=== PATIENT | male | born 2005 | race Caucasian/White ===

== ENCOUNTER 2025-05-03 09:41 | Outpatient (RCR) | payer MEDICAID, SELFPAY ==
--- NOTE | 2025-05-03 | XR_ITS ---
Examination: ALVARADO, hepatobiliary radioisotope scan Gallbladder ejection fraction study. Date and time of exam: May 03, 2025 1048 hours INDICATION: Sharp upper abdominal pain with nausea vomiting and diarrhea beginning 3 years ago Technique: 5.9 mCi of 99M Hepatolite administered. Serial imaging then obtained from immediate through 60 minutes. 2.5 mcg selective catheter Kinevac administered for gallbladder ejection fraction study. Findings: Radioisotope activity within the liver is reasonably homogenous. Gallbladder, common bile duct small bowel activity noted Impression: Gallbladder activity, abnormal gallbladder ejection fraction 25%, normal greater than 35%
== END 2025-05-08 23:59 | disposition home or self-care (01) ==
LOC: SNUC 09:41
PROVIDERS: PCP Nurse Practitioner Family; Referring Provider Nurse Practitioner Family; Visit Provider Nurse Practitioner Family
DX: R93.2 Abnormal findings on diagnostic imaging of liver and biliary tract (principal)
CPT/HCPCS: 78227; A9537; J2805